=== PATIENT | male | born 1955 ===

== ENCOUNTER 2023-06-16 16:30 | Emergency (ER) | payer MEDICARE, OTHER ==
[~2023-06-16] VITALS: Ht 175.3 cm; Wt 86.4 kg
[2023-06-16 17:23] LABS: COVID AG,FIA SOURCE NASAL SWAB
[2023-06-16 17:46] LABS: SARS-COV2 (COVID) ANTIGEN,FIA Negative (Negative)
[2023-06-16 17:49] LABS: INFLUENZA TYPE A NEGATIVE FOR TYPE A (NEGATIVE); INFLUENZA TYPE B NEGATIVE FOR TYPE B (NEGATIVE)
[2023-06-16 18:33] LABS: BASOPHILS % (AUTO) 0.4 % (0.0-2.0); HEMATOCRIT 42.1 % (41-53); HEMOGLOBIN 14.6 g/dL (13.5-17.5); LYMPHOCYTES # (AUTO) 1.4 K/uL (1.0-4.8); LYMPHOCYTES % (AUTO) 23.8 % (22.0-44.0); MEAN CORPUSCULAR HEMOGLOBIN 33.5 pg (26.0-34.0); MEAN CORPUSCULAR HGB CONC 34.7 G/dL (31.0-37.0); MEAN CORPUSCULAR VOLUME 97 fL (80-100); MONOCYTES # (AUTO) 0.5 K/uL (0.1-1.0); MONOCYTES % (AUTO) 8.5 % (2.0-9.0); NEUTROPHILS # (AUTO) 3.8 K/uL (1.8-7.7); NEUTROPHILS % (AUTO) 66.3 % (40.0-70.0); PLATELET COUNT (AUTO) 144 K/uL (150-450); RED BLOOD CELL COUNT(AUTO) 4.35 MIL/uL (4.50-5.90); RED CELL DISTRIBUTION WIDTH 13.5 % (11.5-14.5); WHITE BLOOD COUNT (AUTO) 5.7 K/uL (4.5-11.0)
[2023-06-16 18:45] LABS: ANION GAP 9 mmol/L (8-16); CARBON DIOXIDE 28 mmol/L (22-29); CHLORIDE 101 mmol/L (98-107); CREATININE 1.18 mg/dL (0.60-1.30); GLOMERULAR FILTR. RATE CALC > 60 mL/min (>60); GLUCOSE,RANDOM 112 mg/dL (70-110); POTASSIUM 3.4 mmol/L (3.5-5.1); SODIUM SERUM 138 mmol/L (136-145); UREA NITROGEN, BLOOD 16 mg/dL (7-18)
[2023-06-16 18:49] LABS: TROPONIN I-HIGH SENSITIVITY 6 ng/L (<76)
[2023-06-16 18:51] LABS: D-DIMER 0.77 mg/L FEU (0.00-0.50); INR 1.1 (0.9-1.1); PROTHROMBIN TIME 11.4 SEC (9.4-11.6)
[2023-06-16 18:53] LABS: B-TYPE NATRIURETIC PEPTIDE 8 pg/mL (0-100)
[2023-06-16 18:55] LABS: ALANINE AMINOTRANSFERASE 64 U/L (12-78); ALBUMIN 3.9 g/dL (3.4-5.0); ALKALINE PHOSPHATASE 67 U/L (46-116); ASPARTATE AMINOTRANSFERASE 42 U/L (15-37); BILIRUBIN,TOTAL 0.5 mg/dL (0.1-1.0); TOTAL PROTEIN, SERUM 8.3 g/dL (6.4-8.2)
[2023-06-16] MEDS ORDERED: PALI156D IM (18:58)
[2023-06-16] MEDS ORDERED: OLAN10TA74 PO (18:58)
[2023-06-16] MEDS ORDERED: DIVA500T53 PO (18:58)
[2023-06-16] MEDS ORDERED: FLUO-341 PO (18:58)
[2023-06-16 19:31] VITALS: TEMP 97.9
[2023-06-16 19:54] VITALS: BP 126/87; PULSE 84; RESP 16
== END 2023-06-16 19:56 | disposition home or self-care (01) ==
LOC: EMS 16:32
DX: J40 Bronchitis, not specified as acute or chronic (principal); F31.9 Bipolar disorder, unspecified; F20.9 Schizophrenia, unspecified; Z20.822 Contact with and (suspected) exposure to COVID-19
CPT/HCPCS: 71046; 80053; 83880; 84484; 85025; 85379; 85610; 85730; 87040; 87804; 93005; 99285; 36415-L1; 36415-TC